=== PATIENT | female | born 1985 | race Caucasian/White ===

== ENCOUNTER 2019-04-16 10:15 | Outpatient (CLI) | payer OTHER ==
--- NOTE | 2019-04-16 10:56 | Non Stress Test Report ---
Non Stress Test Datetime Report Generated by CPN: 04/16/2019 10:56 DEMOGRAPHIC Test Number: 1 EGA NST: 40.3 INDICATION Indication for Study (NST) Other: postdates at 40+3 repeat NST VITAL SIGNS Temperature - NST: 98.4 Pulse - NST: 90 RESP - NST: 16 NBPSYS NST: 100 NBPDIA NST: 59 MONITORING Monitor Explained: Monitor Explained; Test Explained; Patient Verbalized Understanding Time on Monitor: 04/16/2019 10:31 Time off Monitor: 04/16/2019 10:55 NST Duration: 24 NST INTERVENTIONS NST Interventions: PO Hydration BABY A: [id number] BABY A Movement : Present Contraction Frequency : 4-7 FHR Baseline : 150 Accelerations : 15X15 Decelerations : None Variability : Moderate 6-25bpm NST Review: Meets Criteria for Reactive NST NST Review and Verified By : jd NST Results: Reactive NST REPORT Report Trigger: Send Report
== END 2019-04-16 11:17 | disposition home or self-care (01) ==
LOC: LC 10:15
PROVIDERS: ATTEND Obstetrics & Gynecology
PROC: 4A1HXCZ Monitoring of Products of Conception, Cardiac Rate, External Approach (ICD-10-PCS; principal; 2019-04-16)
DX: O48.0 Post-term pregnancy (principal); Z3A.40 40 weeks gestation of pregnancy
CPT/HCPCS: 59025

== ENCOUNTER 2019-04-20 05:59 | Inpatient (IN) | payer OTHER ==
[2019-04-20] MEDS ORDERED: RINGERS SOLUTION,LACTATED 300 ML IV ONE (06:17)
[2019-04-20] MEDS ORDERED: OXYTOCIN/NORMAL SALINE 20 UNIT/1,000 ML RTUINJ IV PRN (06:17)
[2019-04-20] MEDS ORDERED: RINGERS SOLUTION,LACTATED 1,000 ML IV PRN (06:17)
[2019-04-20] MEDS ORDERED: OXYTOCIN 10 UNIT/ML VIAL ONE (06:33)
[2019-04-20] MEDS ORDERED: MISOPROSTOL 0.2 MG TABLET ONE (06:33)
[2019-04-20] MEDS ORDERED: LIDOCAINE 1% INJ-PF (10 MG/ML) 30 ML SDV ONE (06:33)
[2019-04-20] MEDS ORDERED: OXYTOCIN/NORMAL SALINE 20 UNIT/1,000 ML RTUINJ ONE (06:33)
[2019-04-20 07:11] LABS: ABSOLUTE EOSINOPHILS # (AUTO) 0.1 10^3/uL (0.0-0.6); ABSOLUTE LYMPHOCYTES (AUTO) 1.8 10^3/uL (0.5-4.7); BASOPHILS % (AUTO) 0.2 % (0-2); HEMATOCRIT 32.8 % (36.0-47.0); HEMOGLOBIN 11.1 g/dL (12.0-15.5); LYMPHOCYTES % (AUTO) 12.8 % (13-45); MEAN CORPUSCULAR HEMOGLOBIN 29.2 pg (27.0-33.4); MEAN CORPUSCULAR HGB CONC 33.7 g/dL (32.0-36.0); MEAN CORPUSCULAR VOLUME 87 fl (80-97); MONOCYTES % (AUTO) 7.5 % (3-13); PLATELET COUNT 242 10^3/uL (150-450); RED BLOOD COUNT 3.78 10^6/uL (3.72-5.28); RED CELL DISTRIBUTION WIDTH 14.4 % (11.5-14.0); SEGMENTED NEUTROPHILS % (AUTO) 78.5 % (42-78); TOTAL CELLS COUNTED % (AUTO) 100 %
[2019-04-20 12:21] LABS: AMORPHOUS SEDIMENT,URINE TRACE /HPF; APPEARANCE,URINE TURBID; BILIRUBIN,URINE NEGATIVE (NEGATIVE); COLOR,URINE YELLOW; GLUCOSE, URINE NEGATIVE (NEGATIVE); KETONES,URINE NEGATIVE (NEGATIVE); LEUKOCYTE ESTERASE,URINE MODERATE (NEGATIVE); NITRITE,URINE NEGATIVE (NEGATIVE); PROTEIN,URINE 30 mg/dL (NEGATIVE); URINE SPECIFIC GRAVITY 1.024; UROBILINOGEN,URINE NEGATIVE mg/dL (<2.0)
[2019-04-20 12:42] LABS: URINE AMPHETAMINES SCREEN NEGATIVE; URINE BARBITURATES SCREEN NEGATIVE; URINE BENZODIAZEPINES SCREEN NEGATIVE; URINE COCAINE SCREEN NEGATIVE; URINE MARIJUANA (THC) SCREEN NEGATIVE; URINE METHADONE SCREEN NEGATIVE; URINE PHENCYCLIDINE SCREEN NEGATIVE
[2019-04-20] MEDS ORDERED: FENTANYL CITRATE INJ/PF 100 MCG/2 ML AMPUL ONE (18:27)
[2019-04-20] MEDS ORDERED: FENTANYL/BUPIVACAINE/NS/PF 300 MCG/150 ML RTUINJ EPI ONE (18:28)
[2019-04-20] MEDS ORDERED: EPHEDRINE SULFATE INJ 50 MG/1 ML AMPULE ONE (18:28)
[2019-04-20] MEDS ORDERED: BUPIVACAINE HCL 0.25 % INJ/PF (2.5 MG/1 ML) 30 ML VIAL ONE (18:29)
--- NOTE | 2019-04-20 21:35 | Admission Physical ---
Datetime Report Generated by CPN: 04/20/2019 21:35 CURRENT ADMISSION Chief Complaint: Scheduled Induction of Labor Indication for Induction: Post Dates Admit Impression : Term, Intrauterine Admit Plan: Admit to Unit; Initiate Labor Induction Protocol ALLERGIES Medication Allergies: No Medication Allergies: No Known Allergies (04/20/2019) Latex: No Latex Allergies OBSTETRICAL HISTORY EDC: 04/13/2019 00:00 : 1 Para: 0 Term: 0 : 0 SAB: 0 IAB: 0 Ectopic: 0 Livin Cesareans: 0 VBACs: 0 Multiple Births: 0 Gestational Diabetes: No Rh Sensitization: No Incompetent Cervix: No RADHA: No Infertility: No ART Treatment: No Uterine Anomaly: No IUGR: No Hx Previous C/S: No Macrosomia: No Hx Loss/Stillborn: No PIH: No Hx : No Placenta Previa/Abruption: No Depression/PP Depression: No PTL/PROM: No Post Hemorrhage: No Current Procedures: Ultrasound; NST Obstetrical History Comments: G-1 denies complications SEE RECORDS Alcohol: No Marijuana : No Cocaine: No Other Illicit Drugs: No Cigarettes: Never Smoker. [id number] MEDICAL HISTORY Diabetes: No Blood Transfusion: No Pulmonary Disease (Asthma, TB): No Breast Disease: No Hypertension: No Planner Intern Surgery: No Heart Disease: No Hosp/Surgery: No Autoimmune Disorder: No Anesthetic Complications: No Kidney Disease: No Abnormal Pap Smear: No Neuro/Epilepsy: No Psychiatric Disorders: No Other Medical Diseases: No Hepatitis/Liver Disease: No Significant Family History: No Varicosities/Phlebitis: No Trauma/Violence : No Thyroid Dysfunction: No INFECTIOUS HISTORY Gonorrhea: No Genital Herpes: No Chlamydia: No Tuberculosis: No Syphilis: No Hepatitis: No HIV/AIDS Exposure: No Rash or Viral Illness: No HPV: No PHYSICAL EXAM General: Normal HEENT: Normal Neurologic: Normal Thyroid: Normal Heart: Normal Lungs: Normal Breast: Normal Back: Normal Abdomen: Normal Genitourinary Exam: Normal Extremities: Normal DTRs: Normal Pelvic Type: Adequate Vital Signs: Reviewed; Within Normal Limits VAGINAL EXAM Dilatation: 3 Effacement: 75 Station: -2 MEMBRANES Pooling: Positive Membranes: Ruptured Amniotic Fluid Color: Clear FETUS A EGA: 41.0 Monitoring: External US FHR- Baseline: 140 Variability: Moderate 6-25bpm Accelerations: 15X15 Decelerations: None FHR Category: Category I Estimated Weight (gm): 2980 Presentation: Vertex Admit Comment: AROM performed approximately 1630 PLANS FOR LABOR AND DELIVERY Labor and Delivery: None Pain Management: Epidural Feeding Preference: Breast Benefit of Breast Feed Discussed: Yes Circumcision: Yes INFORMED CONSENT Signature: with User ID: Anderson
[2019-04-21] MEDS ORDERED: DIBUCAINE 1% OINTMENT 28 GM TP PRN (01:03)
[2019-04-21] MEDS ORDERED: PROMETHAZINE HCL 25 MG SUPP.RECT PR PRN (01:03)
[2019-04-21] MEDS ORDERED: NA PHOS,M-B/NA PHOS,DI-BA (ADULT) 133 ML ENEMA PR PRN (01:03)
[2019-04-21] MEDS ORDERED: OXYTOCIN/NORMAL SALINE 20 UNIT/1,000 ML RTUINJ IV PRN (01:03)
[2019-04-21] MEDS ORDERED: MAGNESIUM HYDROXIDE SUSP 30 ML UDCUP PO PRN (01:03)
[2019-04-21] MEDS ORDERED: GLYCERIN/WITCH HAZEL LEAF 1 EACH MED..WIPE TP PRN (01:03)
[2019-04-21] MEDS ORDERED: DIPHENHYDRAMINE HCL 25 MG CAPSULE PO PRN (01:03)
[2019-04-21] MEDS ORDERED: ACETAMINOPHEN 650 MG SUPP.RECT PR PRN (01:03)
[2019-04-21] MEDS ORDERED: BENZOCAINE/MENTHOL AEROSOL SPRAY 56 ML TOP PRN (01:03)
[2019-04-21] MEDS ORDERED: PROMETHAZINE HCL INJ 25 MG/1 ML VIAL IV PRN (01:03)
[2019-04-21] MEDS ORDERED: MEASLES,MUMPS&RUBELLA VACC/PF 0.5 ML VIAL SUBCUT PRN (01:03)
[2019-04-21] MEDS ORDERED: ACETAMINOPHEN WITH CODEINE #3 TABLET PO PRN ×2 (01:03)
[2019-04-21] MEDS ORDERED: PROMETHAZINE HCL 25 MG TABLET PO PRN (01:03)
[2019-04-21] MEDS ORDERED: DIPH/PERTUSS(ACELL)/TETANUS VAC/PF 0.5 ML SYR (>=10YO) IM PRN (01:03)
[2019-04-21] MEDS ORDERED: PSEUDOEPHEDRINE HCL 30 MG TABLET PO PRN (01:03)
[2019-04-21] MEDS ORDERED: ZOLPIDEM TARTRATE 5 MG TABLET PO PRN (01:03)
[2019-04-21] MEDS ORDERED: OXYTOCIN/NORMAL SALINE 20 UNIT/1,000 ML RTUINJ ONE (01:20)
[2019-04-21] MEDS ORDERED: IBUPROFEN 800 MG TABLET ONE (01:57)
[2019-04-21] MEDS: IBUPROFEN 800 MG TABLET PO SCH ×3 (06:54→22:04)
--- NOTE | 2019-04-21 09:00 | PDOC PROGRESS REPORT ---
Subjective-OB Progress Note for:: 04/21/19 Subjective: Doing well, no c.o, family at BS, , voiding, ambulating Physical Exam (OB) Vital Signs: Temp Pulse Resp BP Pulse Ox 98.0 F 105 H 16 121/58 L 96 04/21/19 07:30 04/21/19 07:30 04/21/19 07:30 04/21/19 07:30 04/21/19 07:30 Intake & Output 04/20/19 04/21/19 04/22/19 06:59 06:59 06:59 Weight 102.2 kg - PIH/Pre-Eclampsia Clonus: Negative Epigastric Pain: No - Lochia Lochia Amount: Scant < 10 ml Lochia Color: Rubra/Red - Abdomen Description: Soft Hernia Present: No Fundal Description: Firm, Midline Fundal Height: u/u - u/2 Objective-Diagnostic Laboratory: 04/20/19 06:42 04/20/19 06:20 Urine Color YELLOW Urine Appearance TURBID Urine pH 5.0 Ur Specific [place] 1.024 Urine Protein 30 H Urine Glucose (UA) NEGATIVE Urine Ketones NEGATIVE Urine Blood NEGATIVE Urine Nitrite NEGATIVE Ur Leukocyte Esterase MODERATE H Urine WBC (Auto) 19 Urine RBC (Auto) 2 Assessment and Plan(PN) - Assessment and Plan (1) Late care Is this a current diagnosis for this admission?: Yes (2) Post-dates , delivered, current hospitalization Is this a current diagnosis for this admission?: Yes (3) Encounter for induction of labor Is this a current diagnosis for this admission?: Yes - Time Spent with Patient Time with patient: Less than 15 minutes Medications reviewed and adjusted accordingly: Yes - Disposition Anticipated Discharge: Home Within: within 24 hours
[2019-04-21] MEDS: FERROUS SULFATE 325 MG TABLET PO SCH ×2 (09:20→17:38)
[2019-04-21] MEDS: DOCUSATE SODIUM 100 MG CAPSULE PO SCH ×2 (09:20→17:38)
[2019-04-21] MEDS: SENNOSIDES/DOCUSATE 8.6-50 MG 1 EACH TABLET PO SCH (09:20)
[2019-04-21] MEDS: PRENATAL VITAMIN W DHA CAPSULE PO SCH (09:20)
[2019-04-21] MEDS: FAMOTIDINE 20 MG TABLET PO SCH ×2 (09:20→22:04)
[2019-04-22] MEDS: IBUPROFEN 800 MG TABLET PO SCH ×3 (05:26→21:59)
[2019-04-22 08:26] LABS: HEMATOCRIT 27.9 % (36.0-47.0); HEMOGLOBIN 9.6 g/dL (12.0-15.5); MEAN CORPUSCULAR HEMOGLOBIN 29.8 pg (27.0-33.4); MEAN CORPUSCULAR HGB CONC 34.2 g/dL (32.0-36.0); MEAN CORPUSCULAR VOLUME 87 fl (80-97); PLATELET COUNT 211 10^3/uL (150-450); RED BLOOD COUNT 3.21 10^6/uL (3.72-5.28); RED CELL DISTRIBUTION WIDTH 14.5 % (11.5-14.0); WHITE BLOOD COUNT 14.7 10^3/uL (4.0-10.5)
--- NOTE | 2019-04-22 09:25 | PDOC PROGRESS REPORT ---
Subjective-OB Progress Note for:: 04/22/19 - PP Day #1, s/p IOL for post dates, doing well, UOB voiding, , O+, Rubella Immune Physical Exam (OB) Vital Signs: Temp Pulse Resp BP Pulse Ox 98.0 F 82 16 110/64 100 04/22/19 07:52 04/22/19 07:52 04/22/19 07:52 04/22/19 07:52 04/22/19 07:52 Intake & Output 04/21/19 04/22/19 04/23/19 06:59 06:59 06:59 Intake Total 700 Balance 700 - General General Appearance: Appears well, Alert In distress: None - PIH/Pre-Eclampsia DTR's: 1 + Clonus: Negative Headache: Absent Epigastric Pain: No Visual Changes: No - Lochia Lochia Amount: Small 10-25 ml Lochia Color: Rubra/Red - Abdomen Description: Soft, Round Hernia Present: No Fundal Description: Firm, Midline Fundal Height: u/u - u/2 - Respiratory Respiratory Status: No respiratory distress - Abdominal Distension: No distension Tenderness: Nontender - Genitourinary Genitourinary Note: voiding - Extremities Upper extremity: Normal inspection Lower extremities: Edema - +1 - Neurological Cognition: Normal Orientation: AAOx4 - Psychological Associated symptoms: Normal affect, Normal mood - Skin Skin Temperature: Warm Skin Moisture: Dry Objective-Diagnostic Laboratory: 04/22/19 08:08 04/22/19 08:08 WBC 14.7 H RBC 3.21 L Hgb 9.6 L Hct 27.9 L MCV 87 MCH 29.8 MCHC 34.2 RDW 14.5 H Plt Count 211 Assessment and Plan(PN) - Assessment and Plan (1) Acute blood loss anemia Is this a current diagnosis for this admission?: Yes (2) Encounter for induction of labor Is this a current diagnosis for this admission?: Yes (3) Late care Is this a current diagnosis for this admission?: Yes (4) Post-dates , delivered, current hospitalization Is this a current diagnosis for this admission?: Yes Plan:: Ambulation encouraged, Routine PP orders - Time Spent with Patient Time with patient: Less than 15 minutes Medications reviewed and adjusted accordingly: Yes - Disposition Anticipated Discharge: Home Within: within 24 hours
[2019-04-22] MEDS: DOCUSATE SODIUM 100 MG CAPSULE PO SCH ×2 (09:49→18:20)
[2019-04-22] MEDS: FAMOTIDINE 20 MG TABLET PO SCH ×2 (09:49→21:59)
[2019-04-22] MEDS: FERROUS SULFATE 325 MG TABLET PO SCH ×2 (09:49→18:20)
[2019-04-22] MEDS: PRENATAL VITAMIN W DHA CAPSULE PO SCH (09:49)
[2019-04-22] MEDS: SENNOSIDES/DOCUSATE 8.6-50 MG 1 EACH TABLET PO SCH (09:49)
[2019-04-23] MEDS: IBUPROFEN 800 MG TABLET PO SCH ×2 (05:07→13:54)
--- NOTE | 2019-04-23 09:06 | PDOC DISCHARGE SUMMARY ---
Impression - Admit/DC Date/PCP Admission Date/Primary Care Provider: 04/20/19 05:59 JARVIS GAO MD Discharge Date: 04/23/19 - Discharge Diagnosis (1) Acute blood loss anemia Is this a current diagnosis for this admission?: Yes (2) Encounter for induction of labor Is this a current diagnosis for this admission?: Yes (3) Late care Is this a current diagnosis for this admission?: Yes (4) Post-dates , delivered, current hospitalization Is this a current diagnosis for this admission?: Yes - Additional Information Resuscitation Status: Full Code Discharge Diet: Regular Discharge Activity: Activity As Tolerated, Balance Activity w/Rest, Pelvic Rest, Slowly Increase Activity, No tub bath Referrals: JARVIS GAO MD [Primary Care Provider] - Prescriptions: Ferrous Sulfate [Feosol 325 mg Tablet] 325 mg PO BID #60 tablet Home Medications: No122/Iron/Folic Acid [ Multi Tablet] 1 tab PO DAILY 04/16/19 Ferrous Sulfate [Feosol 325 mg Tablet] 325 mg PO BID #60 tablet 04/23/19 HPI Gestational Age: 41.1 wks Reason(s) for Admission: Induction of Labor Procedures: Ultrasound Intrapartum Procedure(s): Spontaneous Vaginal Delivery Results Laboratory Results: WBC 14.7 10^3/uL (4.0-10.5) H 04/22/19 08:08 RBC 3.21 10^6/uL (3.72-5.28) L 04/22/19 08:08 Hgb 9.6 g/dL (12.0-15.5) L 04/22/19 08:08 Hct 27.9 % (36.0-47.0) L 04/22/19 08:08 MCV 87 fl (80-97) 04/22/19 08:08 MCH 29.8 pg (27.0-33.4) 04/22/19 08:08 MCHC 34.2 g/dL (32.0-36.0) 04/22/19 08:08 RDW 14.5 % (11.5-14.0) H 04/22/19 08:08 Plt Count 211 10^3/uL (150-450) 04/22/19 08:08 Lymph % (Auto) 12.8 % (13-45) L 04/20/19 06:42 [place] % (Auto) 7.5 % (3-13) 04/20/19 06:42 Eos % (Auto) 1.0 % (0-6) 04/20/19 06:42 Baso % (Auto) 0.2 % (0-2) 04/20/19 06:42 Absolute Neuts (auto) 11.0 10^3/uL (1.7-8.2) H 04/20/19 06:42 Absolute Lymphs (auto) 1.8 10^3/uL (0.5-4.7) 04/20/19 06:42 Absolute Monos (auto) 1.0 10^3/uL (0.1-1.4) 04/20/19 06:42 Absolute Eos (auto) 0.1 10^3/uL (0.0-0.6) 04/20/19 06:42 Absolute Basos (auto) 0.0 10^3/uL (0.0-0.2) 04/20/19 06:42 Seg Neutrophils % 78.5 % (42-78) H 04/20/19 06:42 Urine Color YELLOW 04/20/19 06:20 Urine Appearance TURBID 04/20/19 06:20 Urine pH 5.0 (5.0-9.0) 04/20/19 06:20 Ur Specific [place] 1.024 04/20/19 06:20 Urine Protein 30 mg/dL (NEGATIVE) H 04/20/19 06:20 Urine Glucose (UA) NEGATIVE mg/dL (NEGATIVE) 04/20/19 06:20 Urine Ketones NEGATIVE mg/dL (NEGATIVE) 04/20/19 06:20 Urine Blood NEGATIVE (NEGATIVE) 04/20/19 06:20 Urine Nitrite NEGATIVE (NEGATIVE) 04/20/19 06:20 Urine Bilirubin NEGATIVE (NEGATIVE) 04/20/19 06:20 Urine Urobilinogen NEGATIVE mg/dL (<2.0) 04/20/19 06:20 Ur Leukocyte Esterase MODERATE (NEGATIVE) H 04/20/19 06:20 Urine WBC (Auto) 19 /HPF 04/20/19 06:20 Urine RBC (Auto) 2 /HPF 04/20/19 06:20 Urine Bacteria (Auto) TRACE /HPF 04/20/19 06:20 Urine WBC Clumps FEW /HPF 04/20/19 06:20 Squamous Epi Cells Auto 8 /HPF 04/20/19 06:20 Amorphous Sediment Auto TRACE /HPF 04/20/19 06:20 Urine Mucus (Auto) FEW /LPF 04/20/19 06:20 Urine Ascorbic Acid 40 (NEGATIVE) H 04/20/19 06:20 Urine Opiates Screen NEGATIVE 04/20/19 06:20 Urine Methadone Screen NEGATIVE 04/20/19 06:20 Ur Barbiturates Screen NEGATIVE 04/20/19 06:20 Ur Phencyclidine Scrn NEGATIVE 04/20/19 06:20 Ur Amphetamines Screen NEGATIVE 04/20/19 06:20 U Benzodiazepines Scrn NEGATIVE 04/20/19 06:20 Urine Cocaine Screen NEGATIVE 04/20/19 06:20 U Marijuana (THC) Screen NEGATIVE 04/20/19 06:20 RPR NONREACTIVE (NONREACTIVE) 04/20/19 06:42 Blood Type O POSITIVE 04/20/19 06:42 Antibody Screen NEGATIVE 04/20/19 06:42 Plan Plan of Treatment: Follow up at [facility] in 4 wks or prn. Pelvic rest x 4-6 wks. Time Spent: Less than 30 Minutes
[2019-04-23] MEDS: SENNOSIDES/DOCUSATE 8.6-50 MG 1 EACH TABLET PO SCH (09:11)
[2019-04-23] MEDS: PRENATAL VITAMIN W DHA CAPSULE PO SCH (09:11)
[2019-04-23] MEDS: DOCUSATE SODIUM 100 MG CAPSULE PO SCH ×2 (09:11→19:12)
[2019-04-23] MEDS: FAMOTIDINE 20 MG TABLET PO SCH (09:11)
[2019-04-23] MEDS: FERROUS SULFATE 325 MG TABLET PO SCH ×2 (09:11→19:13)
[2019-04-23 09:23] VITALS: BP 110/64
--- NOTE | 2019-04-24 11:43 | Delivery Summary ---
Del Sum A-C Datetime Report Generated by CPN: 04/24/2019 11:43 DELIVERY PERSONNEL DELIVERY PERSONNEL: [id number] Delivery Doctor:: Romelia Mahan MD Delivery Doctor:: Romelia Mahan MD Labor and Delivery Nurse:: Isidra Alvarez RNbank cashier Nurse:: Swetha Vásquez RNC Nursery Nurse:: Lety Gutierrez RN Implement Mechanic/CIRCULAR SHEAR OPERATOR: April Aleksey, DINKEY DRIVER MATERNAL INFORMATION Delivery Anesthesia: Epidural Medications After Delivery: Pitocin Drip 20 Units/1000ml NSS Estimated Blood Loss (ml): 100 Estimated Blood Loss (ml): 200 Delivery QBL: 100 Delivery QBL Comment: del 100 recovery 99 Maternal Complications: None Maternal Complications: None LABOR SUMMARY EDC: 04/13/2019 00:00 No. Babies in Womb: 1 Attempted: No Labor Anesthesia: Epidural LABOR INFORMATION Reason for Induction: Post Dates Onset of Labor: 04/20/2019 20:30 Complete Dilatation: 04/20/2019 21:59 Oxytocin: Induction Group B Beta Strep: negative Antibiotics # of Doses: none Steroids Given: None Reason Steroids Not Administered: Not Applicable MEMBRANES Membranes Rupture Method: Artificial Rupture of Membranes: 04/20/2019 17:04 Length of Rupture (hr): 7.78 Amniotic Fluid Color: Clear Amniotic Fluid Amount: Copious Amniotic Fluid Odor: Normal STAGES OF LABOR Stage 1 hr: 1 Stage 1 min: 29 Stage 2 hr: 2 Stage 2 min: 52 Stage 3 hr: 0 Stage 3 min: 5 Total Time in Labor hr: 4 Total Time in Labor min: 26 VAGINAL DELIVERY Episiotomy: None Laceration #1: None Laceration Extension #1: N/A Laceration Repair: Not Applicable Sponge Count Correct: Yes CSECTION DELIVERY Primary Indication: N/A Secondary Indication: N/A CSection Incidence: N/A Labor: N/A Elective: N/A BABY A INFORMATION Delivery Date/Time: 04/21/2019 00:51 Method of Delivery: Vaginal Method of Delivery: Vaginal Born in Route : No : N/A Forceps: N/A Vacuum Extraction: N/A Shoulder Dystocia : No PRESENTATION/POSITION BABY A Presentation: Cephalic Cephalic Presentation: Vertex Vertex Position: Right Occipital Anterior Breech Presentation: N/A PLACENTA INFORMATION BABY A Placenta Delivery Time : 04/21/2019 00:56 Placenta Method of Delivery: Spontaneous Placenta Method of Delivery: Spontaneous Placenta Status: Delivered SCORES BABY A Heart Rate 1 min: >100 bpm Resp Effort 1 min: Good Cry Reflex Irritability 1 min: Cough or Sneeze or Pulls Away Muscle Tone 1 min: Some Flexion of Extremities Color 1 min: Body [place], Extremities Blue Resuscitation Effort 1 min: N/A SCORE 1 MIN: 8 Heart Rate 5 min: >100 bpm Resp Effort 5 min: Good Cry Reflex Irritability 5 min: Cough or Sneeze or Pulls Away Muscle Tone 5 min: Active Motion Color 5 min: Body [place], Extremities Blue Resuscitation Effort 5 min: N/A SCORE 5 MIN: 9 INFORMATION BABY A Gestational Age at Delivery: 41.1 Gestational Status: Late Term- 41- 41.6 Weeks Infant Outcome : Liveborn Infant Condition : Stable Infant Sex: Male Sex: Male IDENTIFICATION BABY A Infant Verification Date/Time: 04/21/2019 01:44 ID Band Number: [id number] Mother's Name Verified: Yes Infant RN Verifying : DRohini Bookerbeckakelly, RN Additional Verifying Personnel: Haja AlvarezPAMELA WEIGHT/LENGTH BABY A Infant Birthweight (gm): 3983 Weight (lb): 8 Weight (oz): 12 Infant Length (in): 22.50 Infant Length (cm): 57.15 CORD INFORMATION BABY A No. Cord Vessels: 3 Nuchal Cord : N/A Cord Blood Taken: Yes-For Storage (Mom's Blood type +) Infant Suction: None ASSESSMENT BABY A Infant Complications: None Physical Findings at Delivery: Within Normal Limits; Molding of the Head Infant Respirations: Appears Normal Skin to Skin: Yes Skin to Skin Time (min): 63 Dramatic Critic/ALS Called : No Infant Care By: Jamie Gutierrez RN Transferred To: Remains with Mother SIGNATURES Signature: with User ID: [email or web address]
== END 2019-04-23 18:30 | disposition home or self-care (01) | DRG 806 ==
LOC: LR 05:59 → 2S 04-21 03:21
PROVIDERS: ADMIT Obstetrics & Gynecology Gynecology; ATTEND Obstetrics & Gynecology Gynecology
PROC: 10907ZC Drainage of Amniotic Fluid, Therapeutic from Products of Conception, Via Natural or Artificial Opening (ICD-10-PCS; 2019-04-20)
PROC: 3E033VJ Introduction of Other Hormone into Peripheral Vein, Percutaneous Approach (ICD-10-PCS; 2019-04-20)
PROC: 10E0XZZ Delivery of Products of Conception, External Approach (ICD-10-PCS; principal; 2019-04-21)
DX: O48.0 Post-term pregnancy (principal); D62 Acute posthemorrhagic anemia; Z37.0 Single live birth; O90.81 Anemia of the puerperium; Z3A.41 41 weeks gestation of pregnancy
CPT/HCPCS: 36415; 80307; 81001; 85025; 85027; 86592; 86850; 86900; 86901; J2590; J3010; J3490